=== PATIENT | female | born 1950 | race Caucasian/White ===

== ENCOUNTER 2020-08-23 16:29 | Outpatient (CLI) | payer OTHER, SELFPAY ==
--- NOTE | ~2020-08-23 | XR_ITS ---
EXAMINATION: XR cervical spine 4-5V EXAM DATE: 08/23/2020 17:20 INDICATION: Chronic neck and left shoulder pain. TECHNIQUE: Cervical spine frontal, lateral, lateral swimmers, and open-mouth odontoid projections. There is no prior study for comparison. FINDINGS: Anterior and interbody fusion at the C5-C7 levels. The hardware is intact. The vertebral b odies are aligned in the AP dimension. Vertebral body and disc heights are well-maintained. There is moderate facet arthropathy at C7-T1, less arthropathy at the other cervical levels. The odontoid proc ess is intact. The lateral masses of C1 line up with C2. Prevertebral soft tissue and pre-dens space are within normal limits. IMPRESSION: 1. Intact fusion C5-7. 2. Facet arthropathy. Reviewed, dictated and finalized at location A.
--- NOTE | ~2020-08-23 | XR_ITS ---
EXAMINATION: XR shoulder LT min 2V EXAM DATE: 08/23/2020 17:20 INDICATION: Left shoulder pain. TECHNIQUE: The following left shoulder projections obtained: frontal projection with internal rotatio n, frontal projection with external rotation, Grashey, and scapular Y view (4+ views). There is no p rior study for comparison. FINDINGS: No evidence of left shoulder rotator cuff calcific tendinosis. There is mild glenohumera l and primary osteoarthritis. There are no acute fractures or dislocations identified. There is no s ubcutaneous gas. The soft tissue is unremarkable. Cervical fusion hardware. IMPRESSION: Mild left shoulder osteoarthritis. Reviewed, dictated and finalized at location A.
--- NOTE | ~2020-08-23 | XR_ITS ---
EXAMINATION: XR thoracic spine 3V EXAM DATE: 08/23/2020 17:20 INDICATION: Chronic left shoulder, neck pain. TECHNIQUE: Frontal and lateral projections of the thoracic spine as well as lateral swimmers projecti on of the upper thoracic spine for interpretation. There is no prior study for comparison. FINDINGS: There are large thoracic endplate osteophytes right anterolateral aspect from T7 through T 12. Only mild loss of mid and lower thoracic disc height. No endplate erosive change. The vertebral b odies are aligned in the AP dimension. There are no acute fractures identified. Paraspinal soft tissu e is unremarkable. IMPRESSION: 1. Large lower thoracic endplate osteophytes. Reviewed, dictated and finalized at location A.
== END 2020-08-23 16:30 | disposition home or self-care (01) ==
LOC: ANHIMG 16:36
PROVIDERS: PCP Family Medicine; Visit Provider Family Medicine
DX: M25.512 Pain in left shoulder (principal); G89.29 Other chronic pain; M54.12 Radiculopathy, cervical region; M19.012 Primary osteoarthritis, left shoulder; Z98.1 Arthrodesis status
CPT/HCPCS: 72050; 72072; 73030

== ENCOUNTER 2020-09-21 12:50 | Outpatient (CLI) | payer OTHER, SELFPAY ==
--- NOTE | ~2020-09-21 | DEXA_ITS ---
Bone Density Report Name: Olga Lopez Age: 69 Sex: Female Ethnicity: White Date of : 1950 Indication: postmenopausal; prior fracture; Referring Provider: Abel, Adelaida Study: Bone densitometry was performed. Exam Date: September 21, 2020 Accession number: [id number] Bone Density: Region BMD T-score Z-score Classification AP Spine (L1, L2, L3) 1.184 1.5 3.4 Normal Femoral Neck (Left) 0.828 -0.2 1.5 Normal Total Hip (Left) 1.084 1.2 2.5 Normal Total Hip Bilateral Avg 1.050 0.9 2.3 Normal Femoral Neck (Right) 0.890 0.4 2.0 Normal Total Hip (Right) 1.014 0.6 2.0 Normal World Health Organization criteria for BMD impression classify patients as: Normal (T-score at or above -1.0), Osteopenia (T-score between -1.0 and -2.5), or Osteoporosis (T-score at or below -2.5). 10-year Fracture Risk: FRAX not reported because: All T-scores for Spine Total, Hip Total, Femoral Neck at or above -1.0 Clinical Information Provided by Patient: Has had a low trauma fracture Patient maximum height was 65 Menopause Age: 47 Onset of menses at age 15 Number of children 0 Impression: The patient has normal bone mass. The patient has risk factors, including: previous fracture. Discussion: BONE DENSITY IS ABOVE THE MINIMUM DESIRABLE LEVEL AT ALL SKELETAL SITES TESTED. This patient?s bone mineral density is above the minimum desirable level (T-score -1.0 or better) at all sites measured. The patient should follow a healthful lifestyle (good nutrition with adequate calcium and vitamin D, and appropriate weight-bearing exercise). Follow-Up: Consider repeating this study in 5 years or sooner if there is some new clinical indication. Reported by: [facility] on 09/21/2020 1:12:00 PM. Reviewed, dictated and finalized at location AChris OMER
== END 2020-09-21 12:51 | disposition home or self-care (01) ==
LOC: ANHIMG 12:52
PROVIDERS: PCP Family Medicine; Visit Provider Family Medicine
DX: Z78.0 Asymptomatic menopausal state (principal)
CPT/HCPCS: 77080